=== PATIENT | female | born 1960 | race Caucasian/White ===

== ENCOUNTER 2016-11-12 09:24 | Inpatient (IN) | payer OTHER ==
[2016-11-12] MEDS ORDERED: Metronidazole 500 mg/100 ml 500 MG/100 ML RTU IV ONE (09:49)
[2016-11-12] MEDS ORDERED: CEFOXITIN 1 GM VIAL ONE (09:49)
[2016-11-12] MEDS ORDERED: Levofloxacin 500 mg/100 ml D5W 500 MG/100 ML RTU IV ONE (09:49)
[2016-11-12] MEDS ORDERED: GLYCOPYRROLATE 1 MG VIAL IM ONE (10:00)
[2016-11-12] MEDS ORDERED: LIDOCAINE 100 MG PFS IV ONE (10:00)
[2016-11-12] MEDS ORDERED: FENTANYL 100 MCG/2 ML VIAL IV ONE (10:00)
[2016-11-12] MEDS ORDERED: ROCURONIUM 50 MG/5 ML VIAL IV ONE (10:00)
[2016-11-12] MEDS ORDERED: DEXAMETHASONE 4 MG/ML VIAL IV ONE (10:00)
[2016-11-12] MEDS ORDERED: PROPOFOL 200 MG/20 ML VIAL IV ONE (10:00)
[2016-11-12] MEDS ORDERED: NEOSTIGMINE 1 MG/1 ML (1:1000) INJ 10 ML MDV IM ONE (10:00)
[2016-11-12] MEDS ORDERED: HYDROmorphone 2 MG/ML VIAL IM ONE (10:00)
[2016-11-12] MEDS ORDERED: ONDANSETRON HCL 4 MG/2 ML VIAL IV ONE (10:00)
[2016-11-12] MEDS ORDERED: MIDAZOLAM 2 MG/2 ML VIAL IV ONE (10:00)
[2016-11-12] MEDS ORDERED: ONDANSETRON HCL 4 MG/2 ML VIAL IV PRN (10:04)
[2016-11-12] MEDS ORDERED: ONDANSETRON HCL 4 MG ODT TAB PO PRN ×2 (10:04→13:59)
[2016-11-12] MEDS ORDERED: MEPERIDINE 25 MG/ML TUBEX IV PRN (10:04)
[2016-11-12] MEDS ORDERED: hydrALAZINE 20 MG/ML VIAL IV PRN (10:04)
[2016-11-12] MEDS ORDERED: FENTANYL 100 MCG/2 ML VIAL IV PRN ×2 (10:04)
[2016-11-12] MEDS ORDERED: LABETALOL 20 MG/4 ML SYRINGE IV PRN (10:04)
[2016-11-12] MEDS ORDERED: HYDROmorphone 1 MG INJECTION IV PRN ×2 (10:04)
--- NOTE | 2016-11-12 10:44 | HIM.ANES ---
Anesthesia Evaluation & Plan Diagnoses: MALIGNANT NEOPLASM OF ASCENDING COLON (11/12/16) Consented Procedure: LAPAROSCOPIC RIGHT COLON RESECTION POSSIBLE OPEN - Focused Review of Systems Now: No Cardiac History: No: Hx Cardiac Disorders HEENT: Yes: Cataracts ("not bad enough to remove yet"), Hx Vision Problem ( reading glasses), Other HEENT Problems Gastrointestinal: Yes: Hx Gastroesophageal Reflux Disease, Hx Gastrointestinal Disorders, Hx Colonoscopy (09/2016), Hx Endoscopy (09/2016) Neurological/Musculoskeletal: No: Hx Neurological Disorders Physiological: No Hx Mental/Emotional Disorders Endocrine: Yes: Hx Non-Insulin Dependent Diabetes, Hx Hyperthyroidism (Grave's disease) Blood/Autoimmune: No: Hx AIDS, Hx Hepatitis (type) Smoking Status: Never smoker Surgical History: Yes: Other (hysteroscopy many years ago) - Focused Physical Exam NPO since: 11/11/16 2200 Mallampati: Class II Thyromental Distance: Greater than 3 Neck: Full Range of Motion Dental: Normal - no significant findings Cardiovascular/Chest: Normal Respiratory: Lungs clear Any problems with anesthesia, including nausea and vomiting?: No Beta Stacia given (if appropriate): N/A Other: Problem List Problem Status Onset Acute blood loss anemia Acute Diabetes mellitus type 2 in nonobese Acute GI bleeding Acute Hyperthyroidism Acute Iron deficiency anemia Acute Allergies Allergy/AdvReac Type Severity Reaction Status Date / Time Penicillins Allergy Anaphylaxis Verified 11/12/16 10:13 * venom-honey bee Allergy Edema-Local Verified 11/12/16 10:13 ized Home Medications Medication Instructions Recorded Last Taken Type Cholecalciferol (Vitamin D3) 5,000 unit PO DAILY 09/18/16 11/11/16 08:00 History [Vitamin D3] Empagliflozin/Linagliptin 1 tab PO DAILY 09/18/16 11/11/16 08:00 History [Glyxambi 25 mg-5 mg Tablet] Epinephrine [Epipen 2-Chris] 0.3 mg IM DIR PRN 09/18/16 1 Year Ago History METHIMAZOLE (hyperthyroid med) 7.5 mg PO DAILY 09/18/16 11/11/16 08:00 History [Tapazole] Metformin HCl [Metformin HCl ER] 500 mg PO TID 09/18/16 11/11/16 12:00 History Ranitidine HCl [Zantac] 300 mg PO DAILY PRN #100 tablet 09/19/16 11/05/16 Rx Iron Fum & Poly #1/C/L. Casei 1 tab PO DAILY 11/12/16 11/11/16 08:00 History [Fusion Capsule] Omeprazole 40 mg PO DAILY 11/12/16 11/11/16 08:00 History Vitamin B Complex/Folic Acid 1 tab PO DAILY 11/12/16 11/11/16 08:00 History [Super B Maxi Complex Caplet] Height and Weight Patient's height 5 ft 8 in Patient's weight 69.853 kg BMI 23.7 Vital Signs Temperature 97.9 F 11/12/16 09:51 Pulse Rate 95 11/12/16 09:51 Respiratory Rate 18 11/12/16 09:51 Blood Pressure 126/66 11/12/16 09:51 Pulse Oxygen Saturation 100 11/12/16 09:51 - Anesthetic Plan Anesthesia Type: General ASA Class: 2 -: I have examined this patient and reviewed the medical record. The patient has been assessed prior to anesthesia. Risks and benefits of anesthesia and anesthetic technique options have been discussed and all questions answered. The patient accepts the risk and desires me to proceed with the planned anesthetic.
[2016-11-12] MEDS ORDERED: BUPIVACAINE 0.25%-EPINEPHRINE 1:200,000 30 ML ONE (11:35)
[2016-11-12] MEDS ORDERED: BUPIVACAINE 0.25%-EPINEPHRINE 1:200,000 30 ML INF ONE (12:25)
[2016-11-12] MEDS ORDERED: PROMETHAZINE 25 MG TAB PO PRN (13:59)
[2016-11-12] MEDS ORDERED: OXYCODONE HCL 5 MG TABLET PO PRN (13:59)
[2016-11-12] MEDS ORDERED: PROMETHAZINE 25 MG/ML VIAL IV PRN (13:59)
--- NOTE | 2016-11-12 14:06 | HIMOPRPT ---
DATE OF PROCEDURE: 11/12/16 PREOPERATIVE DIAGNOSES: T2 N0 M0 colon cancer right colon. POSTOPERATIVE DIAGNOSES: Same. PROCEDURES: Laparoscopic right hemicolectomy. SURGEON: Ender Butt MD ANESTHESIA: General. COMPLICATIONS: None. ESTIMATED BLOOD LOSS: Minimal. ANTIBIOTICS: Preoperative antibiotics given. INDICATIONS: The patient is a pleasant 56-year-old female who had been found to have a lesion in the right colon just past the cecum. We have been asked to evaluate and treat her and felt she would benefit from the above-mentioned procedure. We explained the risk of infection, bleeding and anesthesia as well as the unforeseen complications and anastomotic dehiscence. She had understood and agreed and was brought for the above-mentioned procedure. OPERATIVE NOTE: The patient was brought to the operating room and placed on the operating table in the supine position. After adequate amount of general anesthesia she was prepped and draped in sterile manner. When given the okay by anesthesia after appropriate time-out an Optiview trocar was placed in the umbilicus usual manner without any difficulties. Two other trocars were then inserted and under direct vision in the usual manner. The abdomen was inspected and no problems were noted. No lesions were noted in the liver. The terminal ilium was then divided with Endo LÓPEZ surgical stapler. The right colon was mobilized with Harmonic scalpel dissection. We took down the mesentery with a LÓPEZ surgical stapler with vascular cartridge. The omentum was taken off the hepatic flexure with Harmonic scalpel dissection. We took down the mesentery to the right colon and the hepatic flexure and then made a small incision at the trocar site to exteriorize the specimen. We went ahead at that point aligned the transverse colon and the terminal ilium with 2 0 pop-off silk sutures created enterotomies and fired a LÓPEZ surgical stapler to create a side- to-side functional end-to-end anastomosis. This was then closed with a TA 60 surgical stapler and the specimen was amputated and taken off the field for pathologic analysis. The staple line was oversewn with 2 0 pop-off silk sutures and then the wound was closed with 3 layers of 1. Vicryl in each muscle layer. The wound was irrigated. Finally the abdomen was reinsufflated which showed that the anastomosis was pink viable without any tension. The omentum was placed over top of this and after irrigating and suctioned the abdomen dry we went ahead and removed the trocars. Hemostasis was assured. The skin edges were brought together surgical clips in the patient was awoke and taken the recover room in excellent condition with correct sponge counts and needle counts.
[2016-11-12] MEDS ORDERED: FENTANYL 100 MCG/2 ML VIAL ONE (14:22)
[2016-11-12] MEDS: Acetaminophen, Intravenous 1,000 MG/100 ML IVBOT IV SCH (14:46)
[2016-11-12] MEDS ORDERED: PROMETHAZINE 25 MG/ML VIAL ONE (15:18)
[2016-11-12] MEDS ORDERED: Vaccine Screening Complete SCH (16:00)
[2016-11-12] MEDS: LR 1,000 ML IV SCH ×2 (16:02→18:07)
--- NOTE | 2016-11-12 17:08 | SC.ANESPOS ---
Post-Anesthesia Note LOC: Fully Awake Post-Anesthesia Assessment: Awake, Returned to Baseline, Hemodynamically Stable , Pain Control Adequate Phase I & II Recovery Complete: Yes Apparent Anesthesia Complication: No : N PACU Discharge Time: 15:20 - Vital Signs Blood Pressure: 125/60 Pulse: 77 Resp Rate: 16 O2 Sat: 98 Temp: 97.6 F - Comments Anesthesia Discharge Time Report Time 15:20
[2016-11-12] MEDS: HYDROmorphone 1 MG INJECTION IV PRN (18:07)
[2016-11-12] MEDS: Metronidazole 500 mg/100 ml 500 MG/100 ML RTU IV SCH (18:18)
[2016-11-12] MEDS ORDERED: GLUCAGON 1 MG VIAL SQ PRN (19:56)
[2016-11-12] MEDS ORDERED: DEXTROSE 25 GM/50 ML PFS IV PRN (19:56)
[2016-11-12] MEDS ORDERED: GLUCOSE (ORAL GEL) 15 GM TUBE PO PRN (19:56)
[2016-11-12] MEDS: REGULAR INSULIN 100 UNITS/ML - 3 ML VIAL SQ SCH (22:23)
[2016-11-13] MEDS: Acetaminophen, Intravenous 1,000 MG/100 ML IVBOT IV SCH ×2 (00:05→06:22)
[2016-11-13] MEDS: Metronidazole 500 mg/100 ml 500 MG/100 ML RTU IV SCH ×2 (01:44→09:07)
[2016-11-13] MEDS: ENOXAPARIN 40 MG/0.4 ML PFS SQ SCH ×2 (01:46→17:15)
[2016-11-13] MEDS: REGULAR INSULIN 100 UNITS/ML - 3 ML VIAL SQ SCH ×4 (05:31→22:28)
[2016-11-13] MEDS: HYDROmorphone 1 MG INJECTION IV PRN ×3 (07:04→19:42)
[2016-11-13] MEDS: LR 1,000 ML IV SCH (13:24)
--- NOTE | 2016-11-13 13:24 | PCM.SURGRO ---
- Subjective Patient: Reports: No new complaints, Pain is less, No Flatus, No Bowel Movement - Objective / Physical Exam Vital Signs: Temperature: 98.5 F (11/13/16 10:00) HR: 72 (11/13/16 10:00)RR: 18 (11/13/16 10: 00) BP: 100/51 (11/13/16 10:00)Pulse Ox: 98 (11/13/16 10:00) General: Alert, Oriented x3, Cooperative HEENT: Normal, PERRLA, EOMI Respiratory: Normal - CTA Cardiovascular: Regular rate Gastrointestinal: Soft, Tender (Mild as expect after surgery.). negative: Distended, Bowel Sounds Extremities: negative: Tenderness, Swelling, Edema, Clubbing, Cyanosis Psych/Mental Status: Appropriate, Cooperative Neurological: Strength at 5/5 X4 ext, Cranial nerves 3-12 NL Skin: Warm,Dry and Intact Surgical wound: Clean/Dry, Intact - Assessment and Plan (1) Colon cancer Acute C18.9 - MALIGNANT NEOPLASM OF COLON, UNSPECIFIED Comment/Plan: S/P laparoscopic resection of Rt colon lesion doing well. Await return of bowel function.
[2016-11-13] MEDS: ONDANSETRON HCL 4 MG/2 ML VIAL IV PRN (19:42)
[2016-11-14] MEDS: HYDROmorphone 1 MG INJECTION IV PRN ×3 (04:24→20:24)
[2016-11-14] MEDS: REGULAR INSULIN 100 UNITS/ML - 3 ML VIAL SQ SCH ×4 (05:52→22:40)
[2016-11-14 08:04] LABS: MPV 8.4 fL (7.4-10.4)
[2016-11-14 08:19] LABS: BLOOD UREA NITROGEN 4 MG/DL (7-17); CALC CORRECTED 9.3 MG/DL (8.4-10.2); CALCIUM 8.9 MG/DL (8.4-10.2); CALCULATED OSMOLALITY 266 MOs/Kg (270-290); CHLORIDE 106 mEq/L (98-107); GLUCOSE 96 MG/DL (70-99); SODIUM LEVEL 140 mEq/L (137-146); TOTAL PROTEIN 6.3 G/DL (6.3-8.2)
[2016-11-14] MEDS: LR 1,000 ML IV SCH ×2 (09:29→14:00)
[2016-11-14 10:52] LABS: SEG NEUTROPHIL 72 % (45-76)
--- NOTE | 2016-11-14 11:10 | PCM.SURGRO ---
- Subjective Patient: Reports: No new complaints, Feels better, Pain is less, No Flatus, No Bowel Movement - Objective / Physical Exam Vital Signs: Temperature: 98.5 F (11/14/16 06:00) HR: 76 (11/14/16 06:00)RR: 16 (11/14/16 06: 00) BP: 108/56 (11/14/16 06:00)Pulse Ox: 95 (11/14/16 06:00) General: Alert, Oriented x3, Cooperative HEENT: Normal, PERRLA, EOMI Respiratory: Normal - CTA. negative: Diminished, Rhonchi Cardiovascular: Regular rate, Regular rate and rhythm Gastrointestinal: Soft, Bowel Sounds, Tender (As expect after surgery.). negative: Distended Extremities: negative: Tenderness, Swelling, Edema, Clubbing, Cyanosis Psych/Mental Status: Appropriate, Cooperative Neurological: Strength at 5/5 X4 ext, Cranial nerves 3-12 NL Surgical wound: Clean/Dry - Assessment and Plan (1) Colon cancer Acute C18.9 - MALIGNANT NEOPLASM OF COLON, UNSPECIFIED Comment/Plan: S/P resection doing well. Await return of bowel function.
[2016-11-14] MEDS: ENOXAPARIN 40 MG/0.4 ML PFS SQ SCH (17:23)
[2016-11-14] MEDS: ONDANSETRON HCL 4 MG/2 ML VIAL IV PRN (20:24)
[2016-11-15] MEDS: LR 1,000 ML IV SCH ×2 (05:33→11:49)
[2016-11-15] MEDS: REGULAR INSULIN 100 UNITS/ML - 3 ML VIAL SQ SCH ×4 (05:34→22:11)
[2016-11-15] MEDS: ONDANSETRON HCL 4 MG/2 ML VIAL IV PRN (07:59)
[2016-11-15] MEDS: HYDROmorphone 1 MG INJECTION IV PRN ×2 (07:59→16:46)
--- NOTE | 2016-11-15 13:52 | PCM.SURGRO ---
- Subjective Patient: Reports: No new complaints, Feels better, No Bowel Movement - Objective / Physical Exam Vital Signs: Temperature: 98.1 F (11/15/16 05:29) HR: 81 (11/15/16 05:29)RR: 16 (11/15/16 05: 29) BP: 120/65 (11/15/16 05:29)Pulse Ox: 97 (11/15/16 05:29) General: Alert, Oriented x3, Cooperative HEENT: Normal, PERRLA, EOMI Respiratory: Normal - CTA Cardiovascular: Regular rate Gastrointestinal: Soft, Bowel Sounds, Tender (Mild as expect after surgery.). negative: Distended Extremities: negative: Tenderness, Swelling, Edema, Clubbing, Cyanosis Psych/Mental Status: Appropriate, Cooperative Neurological: Strength at 5/5 X4 ext, Cranial nerves 3-12 NL - Assessment and Plan (1) Colon cancer Acute C18.9 - MALIGNANT NEOPLASM OF COLON, UNSPECIFIED Comment/Plan: Post op doing well. Await return of bowel function.
[2016-11-15] MEDS: ENOXAPARIN 40 MG/0.4 ML PFS SQ SCH (16:47)
[2016-11-16] MEDS: LR 1,000 ML IV SCH ×3 (01:37→21:44)
[2016-11-16 05:36] VITALS: BMI 22.9
[2016-11-16] MEDS: REGULAR INSULIN 100 UNITS/ML - 3 ML VIAL SQ SCH ×4 (05:55→21:44)
--- NOTE | 2016-11-16 08:35 | PCM.SURGRO ---
- Subjective Patient: Reports: No new complaints, Feels better, Flatus - Objective / Physical Exam Vital Signs: Temperature: 97.9 F (11/16/16 05:32) HR: 82 (11/16/16 05:32)RR: 18 (11/16/16 05: 32) BP: 128/69 (11/16/16 05:32)Pulse Ox: 98 (11/16/16 05:32) General: Alert, Oriented x3, Cooperative HEENT: Normal, PERRLA, EOMI Respiratory: Normal - CTA Cardiovascular: Regular rate Gastrointestinal: Soft, Bowel Sounds, Tender (Very mild as expected.). negative : Distended Extremities: negative: Tenderness, Swelling, Edema, Clubbing, Cyanosis Psych/Mental Status: Appropriate, Cooperative Neurological: Strength at 5/5 X4 ext, Cranial nerves 3-12 NL - Assessment and Plan (1) Colon cancer Acute C18.9 - MALIGNANT NEOPLASM OF COLON, UNSPECIFIED Comment/Plan: S/p lap colon doing well. Advance diet. Home soon.
[2016-11-16] MEDS: OXYCODONE HCL 5 MG TABLET PO PRN ×2 (09:39→14:54)
[2016-11-16] MEDS: ENOXAPARIN 40 MG/0.4 ML PFS SQ SCH (17:38)
[2016-11-17] MEDS: OXYCODONE HCL 5 MG TABLET PO PRN ×2 (00:31→09:32)
[2016-11-17 05:50] VITALS: BP 115/66; PULSE 77; TEMP 98
[2016-11-17] MEDS: REGULAR INSULIN 100 UNITS/ML - 3 ML VIAL SQ SCH ×2 (06:03→12:16)
--- NOTE | 2016-11-17 11:13 | PCM.DCS92 ---
- Final/Secondary Discharge Diagnosis (1) Colon cancer Acute C18.9 - MALIGNANT NEOPLASM OF COLON, UNSPECIFIED Discharge Disposition: Home Discharge Condition: Improved Diet at Discharge: As Tolerated, Soft Activity: No Heavy Lifting Call Office For: Worsening Symptoms Discontinue use of:: Alcohol, All Illegal Substances, All Types of Tobacco - DC Summary Notes Hospital Course Note:: Discharge summary on patient named GRIFFIN STEELE admitted to [facility] on 11/12/16 by Ender Butt MD. Date of discharge is []. The patient underwent Lap R colon resection and did well. Post operatively when she had bowel function, was ambulating, afebrile, tolerating her diet with no pain she was felt able to be discharged. - Physical Exam Vital Signs: Initial Vitals Temperature 97.9 F 11/12/16 09:51 Pulse Rate 95 11/12/16 09:51 Respiratory Rate 18 11/12/16 09:51 Blood Pressure 126/66 11/12/16 09:51 Pulse Oxygen Saturation 100 11/12/16 09:51 Constitutional: No apparent distress, Alert - HEENT Head: Normal Respiratory: Normal - CTA Cardiovascular: Normal - GI Auscultation: Normal Palpation: Normal Tenderness: Mild (Very mild as expect after surgery.) - Musculoskeletal Extremities: negative: Calf Tenderness, Clubbing, Cyanosis, Edema
== END 2016-11-17 12:22 | disposition home or self-care (01) | DRG 331 ==
LOC: SDC 09:24 → MPS3 15:13
PROVIDERS: ADMIT Surgery; ATTEND Surgery
PROC: 0DTF0ZZ Resection of Right Large Intestine, Open Approach (ICD-10-PCS; principal; 2016-11-12 11:15)
DX: C18.2 Malignant neoplasm of ascending colon (principal); E11.9 Type 2 diabetes mellitus without complications; D50.9 Iron deficiency anemia, unspecified; Z79.84 Long term (current) use of oral hypoglycemic drugs; Z87.891 Personal history of nicotine dependence
CPT/HCPCS: 80053; 82962; 85007; 85027; 96372; G0237; J0131; J0694; J1100; J1170; J1650; J1956; J2001; J2250; J2405; J2550; J2710; J3010; J3490